=== PATIENT | male | born 1995 | race Caucasian/White ===

== ENCOUNTER 2018-02-14 18:29 | Emergency (ER) | payer OTHER, BC ==
[2018-02-14 19:10] VITALS: PULSE 94; O2SAT 97
[2018-02-14] MEDS ORDERED: ACETAMINOPHEN 500 MG 500 MG TAB PO ONE (19:21)
[2018-02-14] MEDS ORDERED: ACETAMINOPHEN 500 MG 500 MG TAB ONE (19:43)
[2018-02-14 19:48] VITALS: BP 119/83; RESP 20
== END 2018-02-14 20:26 | disposition home or self-care (01) | DRG 605 ==
LOC: ED 18:29
DX: S00.03XA Contusion of scalp, initial encounter (principal)
CPT/HCPCS: 70450; 99283